=== PATIENT | female | born 1985 | race Caucasian/White ===

== ENCOUNTER 2019-10-11 21:00 | Inpatient (IN) | payer SELFPAY ==
--- NOTE | 2019-10-11 22:00 | Event Note ---
ED Screening Note ED Screening Note: CP that began yesterday sharp pain +sob no recent illness no N/V hx of sleep apnea no daily meds no allergies to meds This initial assessment/diagnostic orders/clinical plan/treatment(s) is/are subject to change based on patients health status, clinical progression and re- assessment by fellow clinical providers in the ED. Further treatment and workup at subsequent clinical providers discretion. Patient/guardian urged not to elope from the ED as their condition may be serious if not clinically assessed and managed. Initial orders include: CP protocol
[2019-10-11] MEDS ORDERED: methylPREDNISolone Sod Succinate 125 MG/2 ML INJ IV ONE (22:06)
[2019-10-11] MEDS ORDERED: ALBUTEROL 2.5 MG/3 ML NEBU IH ONE (22:06)
[2019-10-11] MEDS ORDERED: IPRATROPIUM 0.02% NEBU 2.5 ML IH ONE (22:06)
--- NOTE | 2019-10-11 22:42 | XRay Report ---
CHEST 2 VIEWS INDICATION / CLINICAL INFORMATION: Chest pain and shortness of breath. COMPARISON: None available. FINDINGS: SUPPORT DEVICES: None. HEART / MEDIASTINUM: There is moderate cardiomegaly. LUNGS / PLEURA: There is mild pulmonary vascular congestion without focal consolidation or significan t pleural effusion. No pneumothorax. ADDITIONAL FINDINGS: No significant additional findings. IMPRESSION: 1. Moderate cardiomegaly and mild pulmonary vascular congestion. Signer Name: Maico Osborn MD Signed: 10/11/2019 10:38 PM Workstation Name: [id number]
[2019-10-11] MEDS ORDERED: FUROSEMIDE 40 MG/4 ML INJ IV ONE (22:53)
--- NOTE | 2019-10-11 23:16 | Emergency Department Report ---
ED General Adult HPI - General Chief complaint: Chest Pain Stated complaint: CHEST PAIN/HEADACHE Time Seen by Provider: 10/11/19 21:59 Source: patient Mode of arrival: Ambulatory Limitations: No Limitations - History of Present Illness Initial comments: Patient is a 34-year-old female up since emergency room for complaints of chest pain and shortness of breath. Patient states that her symptoms started yesterday. Patient is also complaining of headache and dizziness that started yesterday. Patient states her chest pain is a 6 out of 10 and is in the center of her chest. Patient states the pain is nonradiating. Patient states that the pain is better with rest and worse with exertion. Patient states her shortness of breath is better with rest and worse with exertion. Patient denies cough. Patient denies fever and chills. Patient denies nausea vomiting. Patient denies diaphoresis. Patient states her headache is a 3 out of 10. Patient states her headache and dizziness are worse with exertion and better with rest. Patient is not on home O2. Patient has CPAP at night for sleep apnea. Patient medical problems are significant for sleep apnea and morbid obesity. -: Sudden Location: chest Severity scale (0 -10): 6 Quality: stabbing, aching Consistency: constant Improves with: rest Worsens with: other Associated Symptoms: chest pain, headaches, shortness of breath. denies: confusion, cough, diaphoresis, fever/chills, loss of appetite, malaise, nausea/vomiting, rash, seizure, syncope, weakness Treatments Prior to Arrival: none - Related Data Allergies Allergy/AdvReac Type Severity Reaction Status Date / Time No Known Allergies Allergy Verified 10/12/19 02:49 ED Review of Systems ROS: Stated complaint: CHEST PAIN/HEADACHE Other details as noted in HPI Constitutional: denies: chills, fever Eyes: denies: eye pain, eye discharge, vision change ENT: denies: ear pain, throat pain Respiratory: see HPI, orthopnea, shortness of breath, SOB with exertion, SOB at rest. denies: cough, wheezing Cardiovascular: as per HPI, chest pain. denies: palpitations Endocrine: no symptoms reported Gastrointestinal: denies: abdominal pain, nausea, diarrhea Genitourinary: denies: urgency, dysuria, discharge Musculoskeletal: denies: back pain, joint swelling, arthralgia Skin: denies: rash, lesions Neurological: as per HPI, headache. denies: weakness, paresthesias Psychiatric: denies: anxiety, depression Hematological/Lymphatic: denies: easy bleeding, easy bruising ED Past Medical Hx - Past Medical History Previous Medical History?: Yes Additional medical history: Sleep Apnea, Morbid Obesity - Surgical History Past Surgical History?: No - Family History Family history: no significant - Social History Smoking Status: Never Smoker Substance Use Type: None ED Physical Exam - General Limitations: No Limitations General appearance: alert, in no apparent distress - Head Head exam: Present: atraumatic, normocephalic - Eye Eye exam: Present: normal appearance - ENT ENT exam: Present: mucous membranes moist - Neck Neck exam: Present: normal inspection - Respiratory Respiratory exam: Present: normal lung sounds bilaterally. Absent: respiratory distress - Cardiovascular Cardiovascular Exam: Present: regular rate, normal rhythm. Absent: systolic murmur, diastolic murmur, rubs, gallop - GI/Abdominal GI/Abdominal exam: Present: soft, normal bowel sounds - Extremities Exam Extremities exam: Present: normal inspection - Back Exam Back exam: Present: normal inspection - Neurological Exam Neurological exam: Present: alert, oriented X3 - Psychiatric Psychiatric exam: Present: normal affect, normal mood - Skin Skin exam: Present: warm, dry, intact, normal color. Absent: rash ED Course Vital Signs 10/11/19 10/11/19 10/11/19 21:16 22:55 23:21 Temperature 97.8 F Pulse Rate 86 100 H Pulse Rate [ 84 Bilateral] Respiratory 20 18 Rate Respiratory 26 H Rate [Bilateral ] Blood Pressure Blood Pressure 135/78 107/68 [Right] O2 Sat by Pulse 91 91 Oximetry 10/12/19 10/12/19 10/12/19 01:51 02:48 03:00 Temperature Pulse Rate 115 H 122 H 111 H Pulse Rate [ Bilateral] Respiratory 28 H 20 28 H Rate Respiratory Rate [Bilateral ] Blood Pressure 105/73 Blood Pressure 110/68 105/73 [Right] O2 Sat by Pulse 92 94 Oximetry 10/12/19 10/12/19 03:19 04:00 Temperature Pulse Rate 108 H Pulse Rate [ Bilateral] Respiratory 26 H Rate Respiratory Rate [Bilateral ] Blood Pressure 110/69 Blood Pressure [Right] O2 Sat by Pulse 100 96 Oximetry - Reevaluation(s) Reevaluation #1: I discussed all results of patient. I discussed plan of care and admission p atient who patient agrees with plan for admission. Patient admitted to the hospitalist service. 10/12/19 02:13 - Consultations Consultation #1: Hospitalist consult for admission. Hospitalist to admit patient. 10/12/19 02:13 ED Medical Decision Making - Lab Data Result diagrams: 10/11/19 22:59 10/12/19 02:54 - EKG Data -: EKG Interpreted by Me EKG shows normal: sinus rhythm, axis, intervals, QRS complexes, ST-T waves Rate: normal - EKG Data Interpretation: other (pvc) - Radiology Data Radiology results: report reviewed, image reviewed CHEST 2 VIEWS INDICATION / CLINICAL INFORMATION: Chest pain and shortness of breath. COMPARISON: None available. FINDINGS: SUPPORT DEVICES: None. HEART / MEDIASTINUM: There is moderate cardiomegaly. LUNGS / PLEURA: There is mild pulmonary vascular congestion without focal consolidation or significant pleural effusion. No pneumothorax. ADDITIONAL FINDINGS: No significant additional findings. IMPRESSION: 1. Moderate cardiomegaly and mild pulmonary vascular congestion. - Medical Decision Making pt is a 34-year-old female that presents emergency room with complaints of breath and chest pain. Patient found to be hypoxic and placed on oxygen. Patient found to have mild pulmonary edema on chest x-ray was given Lasix. Patient then had a CT scan of the chest to rule out PE due to her symptoms. Patient admitted to the hospitalist service. Rest the patient's labs essentially unremarkable. - Differential Diagnosis ACS. Chest pain. Shortness of breath. PE. Hypoxia. Critical Care Time: Yes Critical care time in (mins) excluding proc time.: 35 Critical care attestation.: If time is entered above; I have spent that time in minutes in the direct care of this critically ill patient, excluding procedure time. Critical Care Time: 35 minutes ED Disposition Clinical Impression: SOB (shortness of breath), DALAL (dyspnea on exertion), Hypoxia, New onset of congestive heart failure Chest pain Qualifiers: Chest pain type: unspecified Qualified Code(s): R07.9 - Chest pain, unspecified CHF (congestive heart failure) Qualifiers: Heart failure type: unspecified Heart failure chronicity: acute Qualified Code(s): I50.9 - Heart failure, unspecified Disposition: -09 OP ADMIT IP TO THIS HOSP Is pt being admited?: Yes Does the pt Need Aspirin: No Condition: Critical Time of Disposition: 02:13
[2019-10-11 23:43] LABS: Basophils # (Auto) 0.1 K/mm3 (0.0-0.1); Basophils % (Auto) 1.1 % (0.0-1.8); Eosinophils # (Auto) 0.2 K/mm3 (0.0-0.4); Eosinophils % (Auto) 2.1 % (0.0-4.3); Hematocrit 38.8 % (30.3-42.9); Hemoglobin 12.3 gm/dl (10.1-14.3); Lymphocytes # (Auto) 2.1 K/mm3 (1.2-5.4); Lymphocytes % (Auto) 25.9 % (13.4-35.0); Mean Corpuscular HGB Conc 32 % (30-34); Mean Corpuscular Volume 78 fl (79-97); Monocytes # (Auto) 0.4 K/mm3 (0.0-0.8); Monocytes % (Auto) 5.1 % (0.0-7.3); Platelet Count 184 K/mm3 (140-440); Red Blood Count 5.01 M/mm3 (3.65-5.03); Red Cell Distribution Width 17.9 % (13.2-15.2)
[2019-10-12 00:09] LABS: Albumin 3.7 g/dL (3.9-5); BUN/Creatinine Ratio 38; Blood Urea Nitrogen 19 mg/dL (7-17); Calcium 9.2 mg/dL (8.4-10.2); Hemolysis Index 379
[2019-10-12 00:36] LABS: Alanine Aminotransferase TNR units/L (7-56)
--- NOTE | 2019-10-12 01:36 | Cat Scan Report ---
CTA CHEST WITH IV CONTRAST INDICATION: Chest pain. Shortness of breath. Hypoxia. TECHNIQUE: Axial CT images were obtained through the chest after injection of 100 MLO Omnipaque 350 IV contrast. 3 plane MIP reconstructions were produced. All CT scans at this location are performed using CT dose reduction for ALARA by means of automated exposure control. COMPARISON: 2 views of the chest from the same day. FINDINGS: PULMONARY ARTERIES: Well-opacified without distinct thromboemboli. AORTA AND ARTERIES: No acute abnormality. MEDIASTINUM: The heart is mildly enlarged without a significant pericardial effusion. No other signif icant abnormality is seen. LUNGS: Atelectasis is noted bilaterally without an additional significant pulmonary abnormality, pneu mothorax or pleural effusion. ADDITIONAL FINDINGS: None. UPPER ABDOMEN: No acute findings. BONES: No significant osseous abnormality. IMPRESSION: 1. No CT evidence for pulmonary embolism. 2. Mild cardiomegaly with bilateral atelectasis. Signer Name: Karel Mendez MD Signed: 10/12/2019 1:32 AM Workstation Name: [id number]
[2019-10-12 02:44] LABS: INR 0.96 (0.87-1.13)
[2019-10-12 02:45] LABS: Partial Thromboplastin Time 28.2 Sec. (24.2-36.6)
[2019-10-12] MEDS ORDERED: oxyCODONE /ACETAMINOPHEN 5-325MG TAB PO PRN (02:45)
[2019-10-12] MEDS ORDERED: ONDANSETRON 4 MG/2 ML INJ IV PRN (02:45)
[2019-10-12] MEDS ORDERED: ACETAMINOPHEN 325 MG TAB PO PRN (02:45)
--- NOTE | 2019-10-12 02:47 | History and Physical Report ---
History of Present Illness Date of examination: 10/12/19 History of present illness: 34-year-old woman with a history of morbid obesity, sleep apnea comes emergency room with complaints of chest pain that started 2 days ago. Pain is in the epigastric area which she describes as a pressure-like sensation, intermittent e very 2 hours, intensity 5/10, no radiation, cannot identify exacerbating factors. Denies nausea vomiting, diaphoresis or palpitation. She admits to baseline shortness of breath and dyspnea on exertion. Patient uses a CPAP at night Review Of Systems: Constitutional: no weight loss, fever, chills Ears, eyes, nose, mouth and throat: no nasal congestion, no nasal discharge, no sinus pressure, blurry vision, diplopia Neck: No neck pain or rigidity. Cardiovascular: No palpitations Respiratory: No cough Gastrointestinal: No hematochezia, abdominal pain Genitourinary : no dysuria, frequency , hematuria Musculoskeletal: no muscle ache , joint pain Integumentary: no rash, no pruritis Neurological: no parathesias, focal weakness Endocrine: no cold or heat intolerance, no polyuria or polydipsia Hematologic/Lymphatic: no easy bruising, no easy bleeding, no gland swelling Allergic/Immunologic: no urticaria, no angioedema. PAST MEDICAL HISTORY:obesity, AISLINN PAST SURGICAL HISTORY: NONE FAMILY HISTORY:hypertension SOCIAL HISTORY: Denies drugs, alcohol, tobacco Medications and Allergies Allergies Allergy/AdvReac Type Severity Reaction Status Date / Time No Known Allergies Allergy Verified 10/12/19 02:49 Active Meds: Active Medications Acetaminophen (Tylenol) 650 mg PO Q4H PRN PRN Reason: Pain MILD(1-3)/Fever >100.5/RUBY Enoxaparin Sodium (Enoxaparin) 30 mg SUB-Q QDAY [facility] Ondansetron HCl (Zofran) 4 mg IV Q8H PRN PRN Reason: Nausea And Vomiting Oxycodone/Acetaminophen (Percocet 5/325) 1 tab PO Q6H PRN PRN Reason: Pain, Moderate (4-6) Sodium Chloride (Sodium Chloride Flush Syringe 10 Ml) 10 ml IV BID ASHOK Sodium Chloride (Sodium Chloride Flush Syringe 10 Ml) 10 ml IV PRN PRN PRN Reason: LINE FLUSH Exam - Physical Exam Narrative exam: General Apperance: The patient sitting in bed no acute distress HEENT: Normocephalic, atraumatic. Pupils equally round and reactive to light, extraocular movement intact, and no sclericterus or JVD or thyromegaly or nodule. Neck supple, no carotid bruit, mucous membranes dry, no exudate or erythema Heart: S1-S2, regular is rhythm Lungs: Clear to auscultation bilaterally, breathing comfortable Abdomen: Positive bowel sounds, soft, nontender, nondistended, no organomegaly Extremities: No edema cyanosis clubbing Skin: no rash, nodule, warm and dry Neuro:CN 2 -12 intact, motor/sensory intact, speech is fluent - Constitutional Vitals: Temp Pulse Resp BP Pulse Ox 97.8 F 115 H 28 H 110/68 92 10/11/19 21:16 10/12/19 01:51 10/12/19 01:51 10/12/19 01:51 10/12/19 01:51 Results - Labs CBC & Chem 7: 10/11/19 22:59 10/12/19 02:54 Labs: Abnormal lab results 10/11/19 10/11/19 Range/Units 22:59 22:59 MCV 78 L (79-97) fl MCH 25 L (28-32) pg RDW 17.9 H (13.2-15.2) % Sodium 136 L (137-145) mmol/L Chloride 95.7 L (98-107) mmol/L BUN 19 H (7-17) mg/dL Creatinine 0.5 L (0.7-1.2) mg/dL Glucose 105 H (65-100) mg/dL NT-Pro-B Natriuret Pep 483.8 H (0-450) pg/mL Albumin 3.7 L (3.9-5) g/dL - Imaging and Cardiology EKG: image reviewed Chest x-ray: image reviewed CT scan - chest: report reviewed Assessment and Plan Assessment Chest pain Check cardiac enzymes, echo, consult cardiology We will obtain stress test on Sunday when available Start aspirin, Percocet Morbid obesity Obtain ABG, placed on CPAP
[2019-10-12 03:29] LABS: BUN/Creatinine Ratio 32; Blood Urea Nitrogen 16 mg/dL (7-17); Calcium 9.7 mg/dL (8.4-10.2); Hemolysis Index 31
[2019-10-12 03:31] LABS: Creatine Kinase MB 4.4 ng/mL (0.0-4.0)
[2019-10-12 09:49] LABS: Creatine Kinase MB 3.8 ng/mL (0.0-4.0)
[2019-10-12] MEDS ORDERED: ENOXAPARIN 30 MG/0.3 ML INJ SUB-Q SCH (10:00)
[2019-10-12] MEDS: ASPIRIN 81 MG TAB CHEW PO SCH (11:46)
[2019-10-12] MEDS: ENOXAPARIN 40 MG/0.4 ML INJ SUB-Q SCH (11:46)
--- NOTE | 2019-10-12 12:28 | Consultation ---
History of Present Illness Consult date: 10/12/19 Requesting physician: DONNA WILLOUGHBY Consult reason: chest pain History of present illness: Ms. Griffin is a 34 y/o female with a medical history significant for morbid obesity and sleep apnea on CPAP who presented with chest pain that worsened over the past two days. She speaks minimal Ukrainian, but was able to communicate sufficiently enough to obtain this HPI. She describes the discomfort as intermittent pressure in the epigastric area. It is non-radiating and non-reproducible with palpation. She also endorses accompanying shortness of breath. CTA negative for PE. CXR found cardiomegaly and mild pulmonary vascular congestion. Troponins negative and EKG unremarkable. She is not known to our practice and does not see a hadoop architect regularly. An echocardiogram on 10/12/19 found an EF of 60 to 65 percent, trace MR and mild TR. Past History Past Medical History: other (morbid obesity, AISLINN) Medications and Allergies Allergies Allergy/AdvReac Type Severity Reaction Status Date / Time No Known Allergies Allergy Verified 10/12/19 02:49 Active Meds: Active Medications Acetaminophen (Tylenol) 650 mg PO Q4H PRN PRN Reason: Pain MILD(1-3)/Fever >100.5/RUBY Aspirin (Baby Aspirin) 81 mg PO QDAY [facility] Last Admin: 10/12/19 11:46 Dose: 81 mg Documented by: Enoxaparin Sodium (Enoxaparin) 40 mg SUB-Q QDAY@1000 [facility] Last Admin: 10/12/19 11:46 Dose: 40 mg Documented by: Ondansetron HCl (Zofran) 4 mg IV Q8H PRN PRN Reason: Nausea And Vomiting Oxycodone/Acetaminophen (Percocet 5/325) 1 tab PO Q6H PRN PRN Reason: Pain, Moderate (4-6) Sodium Chloride (Sodium Chloride Flush Syringe 10 Ml) 10 ml IV BID [facility] Last Admin: 10/12/19 11:47 Dose: 10 ml Documented by: Sodium Chloride (Sodium Chloride Flush Syringe 10 Ml) 10 ml IV PRN PRN PRN Reason: LINE FLUSH Review of Systems Cardiovascular: chest pain, shortness of breath Physical Examination Last Vital Signs Temp 97.4 F L 10/12/19 07:48 Pulse 90 10/12/19 07:56 Resp 11 L 10/12/19 07:56 BP 107/65 10/12/19 07:48 Pulse Ox 98 10/12/19 07:48 General appearance: no acute distress HEENT: Positive: PERRL Neck: Positive: neck supple Cardiac: Positive: Reg Rate and Rhythm Lungs: Positive: Normal Exam Neuro: Positive: Grossly Intact Abdomen: Positive: Unremarkable Female genitourinary: deferred Skin: Positive: Clear Musculoskeletal: Normal Range of Motion Extremities: Present: normal Results 10/11/19 22:59 10/12/19 02:54 Cardiac Enzymes 10/11/19 10/12/19 10/12/19 Range/Units 22:59 02:54 09:03 AST TNR CK-MB (CK-2) 4.4 H 3.8 (0.0-4.0) ng/mL Coagulation 10/12/19 Range/Units 01:09 PT 12.7 (12.2-14.9) Sec. INR 0.96 (0.87-1.13) APTT 28.2 (24.2-36.6) Sec. CBC 10/11/19 Range/Units 22:59 WBC 7.9 (4.5-11.0) K/mm3 RBC 5.01 (3.65-5.03) M/mm3 Hgb 12.3 (10.1-14.3) gm/dl Hct 38.8 (30.3-42.9) % Plt Count 184 (140-440) K/mm3 Lymph # 2.1 (1.2-5.4) K/mm3 [place] # 0.4 (0.0-0.8) K/mm3 Eos # 0.2 (0.0-0.4) K/mm3 Baso # 0.1 (0.0-0.1) K/mm3 Comprehensive Metabolic Panel 10/11/19 10/12/19 Range/Units 22:59 02:54 Sodium 136 L 137 (137-145) mmol/L Potassium TNR 4.4 Chloride 95.7 L 93.0 L (98-107) mmol/L Carbon Dioxide 27 29 (22-30) mmol/L BUN 19 H 16 (7-17) mg/dL Creatinine 0.5 L 0.5 L (0.7-1.2) mg/dL Glucose 105 H 153 H (65-100) mg/dL Calcium 9.2 9.7 (8.4-10.2) mg/dL AST TNR ALT TNR Alkaline Phosphatase TNR Total Protein 7.5 (6.3-8.2) g/dL Albumin 3.7 L (3.9-5) g/dL - Imaging and Cardiology Echo: report reviewed (10/12/19: EF 60-65%, mild TR, trace MR) EKG interpretations - Telemetry EKG Rhythm: Sinus Rhythm Assessment and Plan Ms. Griffin is a 34 y/o female admitted with chest pain. Diagnostics thus far are unremarkable. Will consider treadmill stress test along with a coronary calcium score - if score is 0, it is highly unlikely that pain is cardiac in origin. The patient has been seen in conjunction with Dr. Morales, who agrees with the assessment and plan. - Patient Problems (1) Chest pain Current Visit: Yes Status: Acute Qualifiers: Chest pain type: unspecified Qualified Code(s): R07.9 - Chest pain, unspecified (2) AISLINN on CPAP Current Visit: Yes Status: Chronic (3) Morbid obesity Current Visit: Yes Status: Chronic (4) SOB (shortness of breath) Current Visit: Yes Status: Acute
--- NOTE | 2019-10-12 12:54 | Event Note ---
Date: 10/12/19 patient with chest pain and shortness of breath. I have seen and examined her. Stress test done report pending. She also has sleep apnea, uses CPAP. ABG shows hypoxia. Consult Pulm. Patient visiting from [place].
--- NOTE | 2019-10-12 19:14 | Consultation ---
History of Present Illness Consult date: 10/12/19 Reason for consult: dyspnea, chest pain, obstructive sleep apnea History of present illness: pulmonary and critical care consultation. Dr. Dao thank you for asking us to participate in the care of this patient. 34-year-old woman with a history of morbid obesity, sleep apnea comes emergency room with complaints of chest pain that started 2 days ago. Pain is in the epigastric area which she describes as a pressure-like sensation, intermittent every 2 hours, intensity 5/10, no radiation, cannot identify exacerbating factors. Also complained dizziness. Denies nausea vomiting, diaphoresis or palpitation. She admits to baseline shortness of breath and dyspnea on exertion. Patient uses a CPAP at night Patient has no history of smoking, alcohol or drug abuse. Patient never worked , House , and has 4 children. No known allergies to the medications. Denies hypertension, diabetes or asthma. Patient is on 3 litres O2. O2 saturation 97%. Chest xray reported moderate cardiomegaly amd mild pulmonary vascular congestion. CTA of chest reported no PE. Mild cardiomegaly and bibasilar atelectasis. Past History Past Medical History: other (morbid obesity, AISLINN) Medications and Allergies Allergies Allergy/AdvReac Type Severity Reaction Status Date / Time No Known Allergies Allergy Verified 10/12/19 02:49 Active Meds: Active Medications Acetaminophen (Tylenol) 650 mg PO Q4H PRN PRN Reason: Pain MILD(1-3)/Fever >100.5/RUBY Aspirin (Baby Aspirin) 81 mg PO QDAY [facility] Last Admin: 10/12/19 11:46 Dose: 81 mg Documented by: Enoxaparin Sodium (Enoxaparin) 40 mg SUB-Q QDAY@1000 [facility] Last Admin: 10/12/19 11:46 Dose: 40 mg Documented by: Ondansetron HCl (Zofran) 4 mg IV Q8H PRN PRN Reason: Nausea And Vomiting Oxycodone/Acetaminophen (Percocet 5/325) 1 tab PO Q6H PRN PRN Reason: Pain, Moderate (4-6) Sodium Chloride (Sodium Chloride Flush Syringe 10 Ml) 10 ml IV BID [facility] Last Admin: 10/12/19 11:47 Dose: 10 ml Documented by: Sodium Chloride (Sodium Chloride Flush Syringe 10 Ml) 10 ml IV PRN PRN PRN Reason: LINE FLUSH Review of Systems All systems: negative Physical Examination Vital signs: Vital Signs Temp Pulse Resp BP Pulse Ox 97.8 F 86 20 135/78 91 10/11/19 21:16 10/11/19 21:16 10/11/19 21:16 10/11/19 21:16 10/11/19 21:16 General appearance: no acute distress, alert, other (Morbidly Obese.) Eyes: non-icteric ENT: oropharynx moist Neck: supple, no JVD Ascultation: Bilateral: diminished breath sounds Cardiovascular: regular rate and rhythm Gastrointestinal: normoactive bowel sounds, soft, non-tender Integumentary: other (Stasis dermatitis.) Extremities: no cyanosis, edema, other (No calf tenderness.) Musculoskeletal: other (Morbidly obese.) Gait: poor gait normal mental status, non-focal exam, pupils equal and round, CN II-XII normal mood appropriate Results - Laboratory Findings CBC and BMP: 10/11/19 22:59 10/12/19 02:54 ABG POC ABG pH 7.341 (7.35-7.45) L 10/12/19 02:51 POC ABG pO2 53 (80-105) L 10/12/19 02:51 POC ABG HCO3 39.9 (22-26 mml/L) 10/12/19 02:51 POC ABG Total CO2 42 (23-27mmol/L) 10/12/19 02:51 POC ABG O2 Sat 83 10/12/19 02:51 PT/INR, D-dimer PT 12.7 Sec. (12.2-14.9) 10/12/19 01:09 INR 0.96 (0.87-1.13) 10/12/19 01:09 Abnormal lab findings: Abnormal Labs 10/11/19 10/11/19 10/12/19 22:59 22:59 02:51 MCV 78 L MCH 25 L RDW 17.9 H POC ABG pH 7.341 L POC ABG pO2 53 L Sodium 136 L Chloride 95.7 L BUN 19 H Creatinine 0.5 L Glucose 105 H CK-MB (CK-2) CK-MB (CK-2) Rel Index NT-Pro-B Natriuret Pep 483.8 H Albumin 3.7 L 10/12/19 10/12/1910/12/19 02:54 02:54 09:03 MCV MCH RDW POC ABG pH POC ABG pO2 Sodium Chloride 93.0 L BUN Creatinine 0.5 L Glucose 153 H CK-MB (CK-2) 4.4 H CK-MB (CK-2) Rel Index 10.4 H 6.0 H NT-Pro-B Natriuret Pep Albumin - Diagnostic Findings Chest x-ray: report reviewed (Moderate cardiomegaly and mild pulmonary vascular congestion.), image reviewed Assessment and Plan 34-year-old woman with a history of morbid obesity, sleep apnea comes emergency room with complaints of chest pain that started 2 days ago. Pain is in the epigastric area which she describes as a pressure-like sensation, intermittent every 2 hours, intensity 5/10, no radiation, cannot identify exacerbating factors. Also complained dizziness. Denies nausea vomiting, diaphoresis or palpitation. She admits to baseline shortness of breath and dyspnea on exertion. Patient uses a CPAP at night Patient has no history of smoking, alcohol or drug abuse. Patient never worked , House , and has 4 children. No known allergies to the medications. Denies hypertension, diabetes or asthma. Patient is on 3 litres O2. O2 saturation 97%. Chest xray reported moderate cardiomegaly amd mild pulmonary vascular congestion. CTA of chest reported no PE. Mild cardiomegaly and bibasilar atelectasis. - Patient Problems (1) New onset of congestive heart failure Current Visit: Yes Status: Acute Plan to address problem: Cardiology consulted. Management as per cardiology. (2) Chest pain Current Visit: Yes Status: Acute Qualifiers: Chest pain type: unspecified Qualified Code(s): R07.9 - Chest pain, unspecified Plan to address problem: Management as per cardiology. (3) DALAL (dyspnea on exertion) Current Visit: Yes Status: Acute Plan to address problem: Albuterol aerosol treatments q 6 hours. (4) Morbid obesity Current Visit: Yes Status: Chronic Plan to address problem: Recommend to loose weight. Exercise and diet. (5) AISLINN on CPAP Current Visit: Yes Status: Chronic Plan to address problem: CPAP as she is using at home. Patient says using Auto pap at home. (6) Hypoxia Current Visit: Yes Status: Acute Plan to address problem: PO2 53 on room air. Patient is candidate for home O2. Arrage home O2 3 litres via nasal canula.
[2019-10-13 06:39] LABS: Basophils % (Auto) 0.3 % (0.0-1.8); Eosinophils % (Auto) 0.6 % (0.0-4.3); Hematocrit 39.3 % (30.3-42.9); Hemoglobin 12.3 gm/dl (10.1-14.3); Lymphocytes # (Auto) 2.1 K/mm3 (1.2-5.4); Mean Corpuscular HGB Conc 31 % (30-34); Mean Corpuscular Volume 79 fl (79-97); Monocytes # (Auto) 0.6 K/mm3 (0.0-0.8); Monocytes % (Auto) 6.7 % (0.0-7.3); Platelet Count 184 K/mm3 (140-440); Red Blood Count 5.01 M/mm3 (3.65-5.03); Red Cell Distribution Width 17.8 % (13.2-15.2)
[2019-10-13 07:00] LABS: BUN/Creatinine Ratio 48; Blood Urea Nitrogen 19 mg/dL (7-17); Hemolysis Index 27
[2019-10-13] MEDS: ENOXAPARIN 40 MG/0.4 ML INJ SUB-Q SCH (10:40)
[2019-10-13] MEDS: ASPIRIN 81 MG TAB CHEW PO SCH (10:40)
--- NOTE | 2019-10-13 13:02 | Progress Note ---
Assessment and Plan Assessment and plan: Chest pain For stress test cardiology following Acute resp failure Pulm following cont supplemental Oxygen Sleep apnea Uses CPAP at home Morbid obesity I counseled her on diet and exercise May need home oxygen, lives in [place] though just visiting. Will consult case management To repeat home O2 eval tomorrow. History Interval history: Chest pain Shortness of breath Hospitalist Physical - Physical exam Narrative exam: Gen: Not in acute distress, lying in bed,morbidly obese HEENT: Normocephalic, atraumatic Neck: supple, no JVD Heart: S1 and S2 reg, no murmurs, rubs or gallop Lungs: Clear to auscultation bilaterally, no wheeze Abd: soft, non tender, non distended, normal BS, Ext: No edema, no clubbing, no cyanosis Neuro: Awake, alert, oriented X 3, No focal neurological signs - Constitutional Vitals: Temp Pulse Resp BP Pulse Ox 97.5 F L 94 H 18 131/95 92 10/13/19 12:49 10/13/19 12:49 10/13/19 12:49 10/13/19 12:49 10/13/19 12:49 General appearance: Present: no acute distress Results - Labs CBC & Chem 7: 10/13/19 05:27 10/13/19 05:27 Labs: Laboratory Last Values WBC 8.4 K/mm3 (4.5-11.0) 10/13/19 05:27 RBC 5.01 M/mm3 (3.65-5.03) 10/13/19 05:27 Hgb 12.3 gm/dl (10.1-14.3) 10/13/19 05:27 Hct 39.3 % (30.3-42.9) 10/13/19 05:27 MCV 79 fl (79-97) 10/13/19 05:27 MCH 25 pg (28-32) L 10/13/19 05:27 MCHC 31 % (30-34) 10/13/19 05:27 RDW 17.8 % (13.2-15.2) H 10/13/19 05:27 Plt Count 184 K/mm3 (140-440) 10/13/19 05:27 Lymph % (Auto) 25.0 % (13.4-35.0) 10/13/19 05:27 [place] % (Auto) 6.7 % (0.0-7.3) 10/13/19 05:27 Eos % (Auto) 0.6 % (0.0-4.3) 10/13/19 05:27 Baso % (Auto) 0.3 % (0.0-1.8) 10/13/19 05:27 Lymph # 2.1 K/mm3 (1.2-5.4) 10/13/19 05:27 [place] # 0.6 K/mm3 (0.0-0.8) 10/13/19 05:27 Eos # 0.0 K/mm3 (0.0-0.4) 10/13/19 05:27 Baso # 0.0 K/mm3 (0.0-0.1) 10/13/19 05:27 Seg Neutrophils % 67.4 % (40.0-70.0) 10/13/19 05:27 Seg Neutrophils # 5.6 K/mm3 (1.8-7.7) 10/13/19 05:27 PT 12.7 Sec. (12.2-14.9) 10/12/19 01:09 INR 0.96 (0.87-1.13) 10/12/19 01:09 APTT 28.2 Sec. (24.2-36.6) 10/12/19 01:09 POC ABG pH 7.341 (7.35-7.45) L 10/12/19 02:51 POC ABG pO2 53 (80-105) L 10/12/19 02:51 POC ABG HCO3 39.9 (22-26 mml/L) 10/12/19 02:51 POC ABG Total CO2 42 (23-27mmol/L) 10/12/19 02:51 POC ABG O2 Sat 83 10/12/19 02:51 POC ABG Base Excess 14 ((-2) - (+3)mmol/L) 10/12/19 02:51 FiO2 21 % 10/12/19 02:51 Sodium 137 mmol/L (137-145) 10/13/19 05:27 Potassium 4.1 mmol/L (3.6-5.0) 10/13/19 05:27 Chloride 91.6 mmol/L (98-107) L 10/13/19 05:27 Carbon Dioxide 32 mmol/L (22-30) H 10/13/19 05:27 Anion Gap 18 mmol/L 10/13/19 05:27 BUN 19 mg/dL (7-17) H 10/13/19 05:27 Creatinine 0.4 mg/dL (0.7-1.2) L 10/13/19 05:27 Estimated GFR > 60 ml/min 10/13/19 05:27 BUN/Creatinine Ratio 48 % 10/13/19 05:27 Glucose 119 mg/dL (65-100) H 10/13/19 05:27 Calcium 9.0 mg/dL (8.4-10.2) 10/13/19 05:27 Total Bilirubin 0.30 mg/dL (0.1-1.2) 10/11/19 22:59 AST TNR 10/11/19 22:59 ALT TNR 10/11/19 22:59 Alkaline Phosphatase TNR 10/11/19 22:59 Total Creatine Kinase 63 units/L (30-135) 10/12/19 09:03 CK-MB (CK-2) 3.8 ng/mL (0.0-4.0) 10/12/19 09:03 CK-MB (CK-2) Rel Index 6.0 (0-4) H 10/12/19 09:03 Troponin T < 0.010 ng/mL (0.00-0.029) 10/12/19 09:03 NT-Pro-B Natriuret Pep 483.8 pg/mL (0-450) H 10/11/19 22:59 Total Protein 7.5 g/dL (6.3-8.2) 10/11/19 22:59 Albumin 3.7 g/dL (3.9-5) L 10/11/19 22:59 Albumin/Globulin Ratio 1.0 % 10/11/19 22:59 Active Medications - Current Medications Current Medications: Generic Name Dose Route Start Last Admin Trade Name Freq PRN Reason Stop Dose Admin Acetaminophen 650 mg 10/12/19 02:45 Tylenol PO Q4H PRN Pain MILD(1-3)/Fever >100.5/RUBY Aspirin 81 mg 10/12/19 10:00 10/13/19 10:40 Baby Aspirin PO 81 mg QDAY ASHOK Administration Enoxaparin Sodium 40 mg 10/12/19 10:00 10/13/19 10:40 Enoxaparin SUB-Q 40 mg QDAY@1000 ASHOK Administration Ondansetron HCl 4 mg 10/12/19 02:45 Zofran IV Q8H PRN Nausea And Vomiting Oxycodone/Acetaminophen 1 tab 10/12/19 02:45 Percocet 5/325 PO Q6H PRN Pain, Moderate (4-6) Sodium Chloride 10 ml 10/12/19 10:00 10/13/19 10:40 Sodium Chloride Flush Syringe 10 Ml IV 10 ml BID ASHOK Administration Sodium Chloride 10 ml 10/12/19 02:45 Sodium Chloride Flush Syringe 10 Ml IV PRN PRN LINE FLUSH
--- NOTE | 2019-10-13 13:29 | Progress Note ---
Assessment and Plan Patient alert and awake. Resting on 3.5L O2, O2 saturation is 92%. Pt says chest pain is better. No acute respiratory distress. Pt said she used her CPAP last night. - Patient Problems (1) New onset of congestive heart failure Current Visit: Yes Status: Acute Plan to address problem: Cardiology consulted. Management as per cardiology. (2) Chest pain Current Visit: Yes Status: Acute Qualifiers: Chest pain type: unspecified Qualified Code(s): R07.9 - Chest pain, unspecified Plan to address problem: Management as per cardiology. (3) DALAL (dyspnea on exertion) Current Visit: Yes Status: Acute Plan to address problem: Albuterol aerosol treatments q 6 hours. (4) Morbid obesity Current Visit: Yes Status: Chronic Plan to address problem: Recommend to loose weight. Exercise and diet. (5) AISLINN on CPAP Current Visit: Yes Status: Chronic Plan to address problem: CPAP as she is using at home. Patient says using Auto pap at home. (6) Hypoxia Current Visit: Yes Status: Acute Plan to address problem: PO2 53 on room air. Patient is candidate for home O2. Arrage home O2 3 litres via nasal canula. Subjective Date of service: 10/13/19 Interval history: Patient alert and awake. Resting on 3.5L O2, O2 saturation is 92%. Pt says chest pain is better. No acute respiratory distress. Pt said she used her CPAP last night. Objective Vital Signs - 12hr 10/13/19 10/13/19 10/13/19 04:00 04:55 08:33 Temperature 97.8 F 98.0 F Pulse Rate 90 89 88 Pulse Rate [ From Monitor] Respiratory 20 18 Rate Blood Pressure 131/78 100/59 O2 Sat by Pulse 93 98 Oximetry 10/13/19 10/13/19 11:25 12:49 Temperature 97.5 F L Pulse Rate 94 H Pulse Rate [ 88 From Monitor] Respiratory 18 18 Rate Blood Pressure 131/95 O2 Sat by Pulse 98 92 Oximetry Constitutional: no acute distress, alert, other (Morbidly Obese.) Eyes: non-icteric ENT: oropharynx moist Neck: supple, no JVD Ascultation: Bilateral: diminished breath sounds Cardiovascular: regular rate and rhythm Gastrointestinal: normoactive bowel sounds, soft, non-tender Integumentary: other (Stasis dermatitis.) Extremities: no cyanosis, edema, other (No calf tenderness.) Neurologic: normal mental status, non-focal exam, pupils equal and round, CN II- XII normal Psychiatric: mood appropriate CBC and BMP: 10/13/19 05:27 10/13/19 05:27 ABG, PT/INR, D-dimer: ABG POC ABG pH 7.341 (7.35-7.45) L 10/12/19 02:51 POC ABG pO2 53 (80-105) L 10/12/19 02:51 POC ABG HCO3 39.9 (22-26 mml/L) 10/12/19 02:51 POC ABG Total CO2 42 (23-27mmol/L) 10/12/19 02:51 POC ABG O2 Sat 83 10/12/19 02:51 PT/INR, D-dimer PT 12.7 Sec. (12.2-14.9) 10/12/19 01:09 INR 0.96 (0.87-1.13) 10/12/19 01:09 Abnormal lab findings: Abnormal Labs 10/11/19 10/11/19 10/12/19 22:59 22:59 02:51 MCV 78 L MCH 25 L RDW 17.9 H POC ABG pH 7.341 L POC ABG pO2 53 L Sodium 136 L Chloride 95.7 L Carbon Dioxide BUN 19 H Creatinine 0.5 L Glucose 105 H CK-MB (CK-2) CK-MB (CK-2) Rel Index NT-Pro-B Natriuret Pep 483.8 H Albumin 3.7 L 10/12/19 10/12/19 10/12/19 02:54 02:54 09:03 MCV MCH RDW POC ABG pH POC ABG pO2 Sodium Chloride 93.0 L Carbon Dioxide BUN Creatinine 0.5 L Glucose 153 H CK-MB (CK-2) 4.4 H CK-MB (CK-2) Rel Index 10.4 H 6.0 H NT-Pro-B Natriuret Pep Albumin 10/13/19 10/13/19 05:27 05:27 MCV MCH 25 L RDW 17.8 H POC ABG pH POC ABG pO2 Sodium Chloride 91.6 L Carbon Dioxide 32 H BUN 19 H Creatinine 0.4 L Glucose 119 H CK-MB (CK-2) CK-MB (CK-2) Rel Index NT-Pro-B Natriuret Pep Albumin
--- NOTE | 2019-10-13 13:59 | Progress Note ---
Assessment and Plan Ms. Griffin is a 34 y/o female admitted with chest pain. AMI ruled out. Echo reviewed - EF 60-65%, mild TR, RVSP 49mmHg. Plan for lexiscan MPI stress test in AM. NPO after MN. The patient has been seen in conjunction with Dr. Talbot who agrees with the assessment and plan. - Patient Problems (1) Chest pain Current Visit: Yes Status: Resolved Qualifiers: Chest pain type: unspecified Qualified Code(s): R07.9 - Chest pain, unspecified (2) AISLINN on CPAP Current Visit: Yes Status: Chronic (3) Morbid obesity Current Visit: Yes Status: Chronic (4) SOB (shortness of breath) Current Visit: Yes Status: Acute Subjective Date of service: 10/13/19 Principal diagnosis: cp Interval history: pt resting at bedside, no current complaints. in ST on tele. sister at bedside. Objective Last Vital Signs Temp 97.5 F L 10/13/19 12:49 Pulse 94 H 10/13/19 12:49 Resp 18 10/13/19 12:49 BP 131/95 10/13/19 12:49 Pulse Ox 92 10/13/19 12:49 - Physical Examination General: No Apparent Distress HEENT: Positive: PERRL Neck: Positive: neck supple Cardiac: Positive: Regular Rhythm, S1/S2 Lungs: Positive: Decreased Breath Sounds Neuro: Positive: Grossly Intact Abdomen: Positive: Unremarkable Skin: Positive: Clear Musculoskeletal: Normal Range of Motion Extremities: Present: normal - Labs and Meds CBC 10/13/19 Range/Units 05:27 WBC 8.4 (4.5-11.0) K/mm3 RBC 5.01 (3.65-5.03) M/mm3 Hgb 12.3 (10.1-14.3) gm/dl Hct 39.3 (30.3-42.9) % Plt Count 184 (140-440) K/mm3 Lymph # 2.1 (1.2-5.4) K/mm3 [place] # 0.6 (0.0-0.8) K/mm3 Eos # 0.0 (0.0-0.4) K/mm3 Baso # 0.0 (0.0-0.1) K/mm3 Comprehensive Metabolic Panel 10/13/19 Range/Units 05:27 Sodium 137 (137-145) mmol/L Potassium 4.1 (3.6-5.0) mmol/L Chloride 91.6 L (98-107) mmol/L Carbon Dioxide 32 H (22-30) mmol/L BUN 19 H (7-17) mg/dL Creatinine 0.4 L (0.7-1.2) mg/dL Glucose 119 H (65-100) mg/dL Calcium 9.0 (8.4-10.2) mg/dL - Imaging and Cardiology EKG: image reviewed Echo: report reviewed (10/12/19: EF 60-65%, mild TR, trace MR)
[2019-10-14] MEDS ORDERED: REGADENOSON 0.4 MG/5 ML INJ IV ONE ×3 (08:11→08:31)
--- NOTE | 2019-10-14 10:35 | Progress Note ---
Assessment and Plan Proceed with lexiscan MPI stress test. Await findings. The patient has been seen in conjunction with Dr. Talbot who agrees with the assessment and plan of care. - Patient Problems (1) Chest pain Current Visit: Yes Status: Resolved Qualifiers: Chest pain type: unspecified Qualified Code(s): R07.9 - Chest pain, unspecified (2) AISLINN on CPAP Current Visit: Yes Status: Chronic (3) Morbid obesity Current Visit: Yes Status: Chronic (4) SOB (shortness of breath) Current Visit: Yes Status: Acute Subjective Date of service: 10/14/19 Principal diagnosis: cp Interval history: pt for stress test, no current complaints. in SR on tele. Objective Last Vital Signs Temp 97.5 F L 10/14/19 08:00 Pulse 89 10/14/19 08:50 Resp 20 10/14/19 08:33 BP 110/63 10/14/19 08:00 Pulse Ox 93 10/14/19 08:33 - Physical Examination General: No Apparent Distress HEENT: Positive: PERRL Neck: Positive: neck supple Cardiac: Positive: Reg Rate and Rhythm, S1/S2 Lungs: Positive: Decreased Breath Sounds Neuro: Positive: Grossly Intact Abdomen: Positive: Unremarkable Skin: Positive: Clear Musculoskeletal: Normal Range of Motion Extremities: Present: normal - Imaging and Cardiology EKG: image reviewed Echo: report reviewed (10/12/19: EF 60-65%, mild TR, trace MR) - Telemetry EKG Rhythm: Sinus Rhythm
[2019-10-14 10:45] VITALS: BP 122/77
[2019-10-14] MEDS: ENOXAPARIN 40 MG/0.4 ML INJ SUB-Q SCH (11:49)
[2019-10-14] MEDS: ASPIRIN 81 MG TAB CHEW PO SCH (11:49)
--- NOTE | 2019-10-14 13:27 | Treadmill Report ---
INDICATION: Chest pain and shortness of breath. IMAGING PROTOCOL: Single isotope used to document as single isotope protocol. IMAGING RESULTS: Normal cavity size from stress to rest. Normal distribution of radionuclide in the anterior, inferior, septal, and apical regions. Gated SPECT, EF of 50% with no wall motion abnormality. The patient infused Lexiscan with no EKG changes. SUMMARY: 1. Negative Lexiscan EKG. 2. Normal rest and stress myocardial perfusion scan. No significant ischemia. No wall motion abnormality. Gated SPECT, EF 50%. JOB# [id number] MOON/KAYLEIGH
--- NOTE | 2019-10-14 13:52 | Progress Note ---
Assessment and Plan Patient alert and awake. Resting on room air, recommend to use O2 2L. Patients po2 on room air is 53. Patient is a candidate for home oxygen, recommend home O2, 2L via nasal cannula. Pt says chest pain is better. No acute respiratory distress. Pt said she used her CPAP last night. Talked to the patients and explained about patients respiratory status. He mentioned to me that she is going for bariatric surgery next week. - Patient Problems (1) New onset of congestive heart failure Current Visit: Yes Status: Acute Plan to address problem: Cardiology consulted. Management as per cardiology. (2) Chest pain Current Visit: Yes Status: Acute Qualifiers: Chest pain type: unspecified Qualified Code(s): R07.9 - Chest pain, unspecified Plan to address problem: Management as per cardiology. (3) DALAL (dyspnea on exertion) Current Visit: Yes Status: Acute Plan to address problem: Albuterol aerosol treatments q 6 hours. (4) Morbid obesity Current Visit: Yes Status: Chronic Plan to address problem: Recommend to loose weight. Exercise and diet. (5) AISLINN on CPAP Current Visit: Yes Status: Chronic Plan to address problem: CPAP as she is using at home. Patient says using Auto pap at home. (6) Hypoxia Current Visit: Yes Status: Acute Plan to address problem: PO2 53 on room air. Patient is candidate for home O2. Arrage home O2 2 litres via nasal canula. Subjective Date of service: 10/14/19 Principal diagnosis: cp Interval history: Patient alert and awake. Resting on room air, recommend to use O2 2L. Patients po2 on room air is 53. Patient is a candidate for home oxygen, recommend home O2, 2L via nasal cannula. Pt says chest pain is better. No acute respiratory distress. Pt said she used her CPAP last night. Talked to the patients and explained about patients respiratory status. He mentioned to me that she is going for bariatric surgery next week. Objective Vital Signs - 12hr 10/14/19 10/14/19 10/14/19 03:45 08:00 08:33 Temperature 98.2 F 97.5 F L Pulse Rate 103 H 102 H Pulse Rate [ 100 H Apical] Respiratory 20 18 20 Rate Blood Pressure 107/62 Blood Pressure 110/63 [Right] O2 Sat by Pulse 92 95 93 Oximetry 10/14/19 10/14/19 10/14/19 08:50 09:31 10:14 Temperature Pulse Rate 89 Pulse Rate [ Apical] Respiratory Rate Blood Pressure 114/79 130/35 Blood Pressure [Right] O2 Sat by Pulse Oximetry 10/14/19 10/14/19 10/14/19 10:16 10:17 10:18 Temperature Pulse Rate Pulse Rate [ Apical] Respiratory Rate Blood Pressure 104/78 120/74 130/78 Blood Pressure [Right] O2 Sat by Pulse Oximetry 10/14/19 10/14/19 10:19 10:20 Temperature Pulse Rate Pulse Rate [ Apical] Respiratory Rate Blood Pressure 135/76 122/77 Blood Pressure [Right] O2 Sat by Pulse Oximetry Constitutional: no acute distress, alert, other (Morbidly Obese.) Eyes: non-icteric ENT: oropharynx moist Neck: supple, no JVD Ascultation: Bilateral: diminished breath sounds Cardiovascular: regular rate and rhythm Gastrointestinal: normoactive bowel sounds, soft, non-tender Integumentary: other (Stasis dermatitis.) Extremities: no cyanosis, edema, other (No calf tenderness.) Neurologic: normal mental status, non-focal exam, pupils equal and round, CN II- XII normal Psychiatric: mood appropriate CBC and BMP: 10/13/19 05:27 10/13/19 05:27 ABG, PT/INR, D-dimer: ABG POC ABG pH 7.341 (7.35-7.45) L 10/12/19 02:51 POC ABG pCO2 > 70 (35-45) H 10/12/19 02:51 POC ABG pO2 53 (80-105) L 10/12/19 02:51 POC ABG HCO3 39.9 (22-26 mml/L) 10/12/19 02:51 POC ABG Total CO2 42 (23-27mmol/L) 10/12/19 02:51 POC ABG O2 Sat 83 10/12/19 02:51 PT/INR, D-dimer PT 12.7 Sec. (12.2-14.9) 10/12/19 01:09 INR 0.96 (0.87-1.13) 10/12/19 01:09 Abnormal lab findings: Abnormal Labs 10/11/19 10/11/19 10/12/19 22:59 22:59 02:51 MCV 78 L MCH 25 L RDW 17.9 H POC ABG pH 7.341 L POC ABG pCO2 > 70 H POC ABG pO2 53 L Sodium 136 L Chloride 95.7 L Carbon Dioxide BUN 19 H Creatinine 0.5 L Glucose 105 H CK-MB (CK-2) CK-MB (CK-2) Rel Index NT-Pro-B Natriuret Pep 483.8 H Albumin 3.7 L 10/12/19 10/12/19 10/12/19 02:54 02:54 09:03 MCV MCH RDW POC ABG pH POC ABG pCO2 POC ABG pO2 Sodium Chloride 93.0 L Carbon Dioxide BUN Creatinine 0.5 L Glucose 153 H CK-MB (CK-2) 4.4 H CK-MB (CK-2) Rel Index 10.4 H 6.0 H NT-Pro-B Natriuret Pep Albumin 10/13/19 10/13/19 05:27 05:27 MCV MCH 25 L RDW 17.8 H POC ABG pH POC ABG pCO2 POC ABG pO2 Sodium Chloride 91.6 L Carbon Dioxide 32 H BUN 19 H Creatinine 0.4 L Glucose 119 H CK-MB (CK-2) CK-MB (CK-2) Rel Index NT-Pro-B Natriuret Pep Albumin
--- NOTE | 2019-10-14 14:07 | Event Note ---
Date: 10/14/19 S/p lexiscan MPI stress test today which was negative for significant ischemia, normal LVEF. Currently stable cardiac status. Pt may discharge from cardiology standpoint. Recommend pt follow up in our office with Dr. Morales within 1-2 weeks ([phone]). Reese HOOK NP / DR. MARTIN
--- NOTE | 2019-10-14 14:58 | Discharge Summary ---
Providers - Providers Date of Admission: 10/12/19 02:45 Date of discharge: 10/14/19 Attending physician: VLADIMIR PECK 10/12/19 02:48 Consult to Physician [CONS] Routine Comment: Consulting Provider: ANDREW MARTIN Physician Instructions: Reason For Exam: cp/sob 10/12/19 12:50 Consult to Physician [CONS] Routine Comment: Consulting Provider: KENISHA CLARKE Physician Instructions: Reason For Exam: Acute on chronic resp failure, sleep apnea 10/14/19 06:10 Consult to Case Management [CONS] Routine Services Needed at Discharge: Home O2 Notified:: case management [facility] Reason for admission: 10/11/2019 Condition: Good Pertinent studies: Chest x-ray showed evidence of hepatomegaly with moderate pulm vascular congestion CTA chest showed no evidence of PE. Has mild hepatomegaly Procedures: Myocardial perfusion scan was unremarkable for any ischemic events. LVEF was 60-65%. She had mild cardiomegaly. Hospital course: 34-year-old woman with a history of morbid obesity, sleep apnea comes emergency room with complaints of chest pain that started 2 days ago. Pain is in the epigastric area which she describes as a pressure-like sensation, intermittent every 2 hours, intensity 5/10, no radiation, cannot identify exacerbating factors. Denies nausea vomiting, diaphoresis or palpitation. She admits to baseline shortness of breath and dyspnea on exertion. Patient uses a CPAP at night. comence on oxygen NTG and ASA. stress test was done. Result was neagtive. Pt is being discharged today to f/u [facility] PCP, Income Tax Expert and Pulm in 3,4 and 7 days respectively Disposition: DC-01 TO HOME OR SELFCARE Time spent for discharge: 40 min - Discharge Diagnoses (1) Chest pain Status: Acute Qualifiers: Chest pain type: unspecified Qualified Code(s): R07.9 - Chest pain, unspecified (2) Hypoxia Status: Acute (3) SOB (shortness of breath) Status: Acute (4) Morbid obesity Status: Chronic (5) AISLINN on CPAP Status: Chronic Core Measure Documentation - Palliative Care Palliative Care/ Comfort Measures: Not Applicable - Core Measures Any of the following diagnoses?: none Exam - Physical Exam Narrative exam: Constitutional: Well-nourished well-developed. In no distress Head: Normocephalic atraumatic Eyes: Pupils are equal round and reactive to light Nose: No enlarged turbinates, no septal deviation. Mouth: Moist mucous membranes. Neck: Supple no thyromegaly. No bruit. No JVD Heart: Regular rate and rhythm, S1-S2 normal. No rubs murmurs or gallop Lungs: Clear to auscultation bilaterally. no rales or rhonchi Abdomen: Soft, nontender. Bowel sound are present. Extremities: No edema, no cyanosis, no clubbing. Neuro: Alert oriented Oriented x3. No focal sensory or motor deficit. Skin: No rashes or hyperpigmented spots Musculoskeletal system: No joint pain or swelling Hematological: No petechia or subcutanous hemorrhages. Immunological: No multiple septic spots on the skin Lymphatic: No generalized lymphadenopathy Psychiatry: Euthymic. Calm. - Constitutional Vitals: Temp Pulse Resp BP Pulse Ox 97.5 F L 89 20 122/77 93 10/14/19 08:00 10/14/19 08:50 10/14/19 08:33 10/14/19 10:20 10/14/19 08:33 Plan Activity: fall precautions Weight Bearing Status: Non-Weight Bearing Diet: diabetic Follow up with: JW FERREIRA MD [Primary Care Provider] - 3 Days SIDRA BRUNO MD [Staff Physician] - 10/20/19 Prescriptions: Acetaminophen [Acetaminophen TAB] 650 mg PO Q4H PRN #30 tablet PRN Reason: Pain MILD(1-3)/Fever >100.5/RUBY Aspirin [Aspirin BABY CHEW TAB] 81 mg PO QDAY #30 tab.chew oxyCODONE /ACETAMINOPHEN [Percocet 5/325 mg] 1 tab PO Q12H PRN #4 tablet PRN Reason: Pain, Moderate (4-6)
== END 2019-10-14 16:35 | disposition home or self-care (01) | DRG 189 ==
LOC: ED 21:00 → 4A 10-12 02:45
PROVIDERS: ADMIT Internal Medicine; ATTEND Family Medicine
PROC: 4A033R1 Measurement of Arterial Saturation, Peripheral, Percutaneous Approach (ICD-10-PCS; principal; 2019-10-12)
PROC: 5A09357 Assistance with Respiratory Ventilation, Less than 24 Consecutive Hours, Continuous Positive Airway Pressure (ICD-10-PCS; 2019-10-12)
PROC: 5A09357 Assistance with Respiratory Ventilation, Less than 24 Consecutive Hours, Continuous Positive Airway Pressure (ICD-10-PCS; 2019-10-13)
DX: J96.01 Acute respiratory failure with hypoxia (principal); Z68.43 Body mass index [BMI] 50.0-59.9, adult; E66.9 Obesity, unspecified; E66.01 Morbid (severe) obesity due to excess calories; G47.33 Obstructive sleep apnea (adult) (pediatric); I50.9 Heart failure, unspecified; Z82.49 Family history of ischemic heart disease and other diseases of the circulatory system; Z71.3 Dietary counseling and surveillance; Z79.82 Long term (current) use of aspirin; Z79.899 Other long term (current) drug therapy
CPT/HCPCS: 36415; 71046; 71275; 78452; 80048; 80053; 82550; 82553; 82803; 83880; 84484; 85025; 85610; 85730; 93005; 93010; 93017; 93306; 94644; 94660; 96374; 96375; G0378; A9502; J1650; J1940; J2785; J2930; Q9967